=== PATIENT | female | born 1995 | race Caucasian/White ===

== ENCOUNTER → 2018-06-14 14:52 | Outpatient (CLI) | payer OTHER, SELFPAY ==
[2018-06-14 18:07] LABS: Chlamydia Trachomatis by PCR Negative (Negative); Neisserai gonorrhoeae by PCR Negative (Negative); Probe Check PASS; Sample Adequacy Control PASS; Specimen Processing Control PASS
== END ==
PROVIDERS: Visit Provider Obstetrics & Gynecology
DX: Z11.3 Encounter for screening for infections with a predominantly sexual mode of transmission (principal)
CPT/HCPCS: 87491; 87591

== ENCOUNTER → 2018-07-19 16:55 | Outpatient (CLI) | payer OTHER, SELFPAY ==
[2018-07-24 14:10] LABS: HPV Reflexed? NOT INDICATED
== END ==
PROVIDERS: Referring Provider Obstetrics & Gynecology; Visit Provider Obstetrics & Gynecology
DX: Z12.4 Encounter for screening for malignant neoplasm of cervix (principal)
CPT/HCPCS: 88175; G0145

== ENCOUNTER → 2020-05-27 | Outpatient (CLI) | payer OTHER, SELFPAY ==
[2020-05-29 03:06] LABS: Chlamydia By Nucleic Acid AMP Negative (Negative)
[2020-05-29 10:34] LABS: Gonococcus By Nucleic Acid AMP Negative (Negative)
== END | disposition home or self-care (01) ==
LOC: LABSPEC 12:43
PROVIDERS: Visit Provider Student in an Organized Health Care Education/Training Program
DX: Z11.3 Encounter for screening for infections with a predominantly sexual mode of transmission (principal)
CPT/HCPCS: 87491; 87591